=== PATIENT | female | born 1975 ===

== ENCOUNTER 2018-02-20 15:53 | Emergency (ER) | payer OTHER ==
[~2018-02-20] VITALS: Ht 157.5 cm; Wt 68.0 kg
[~2018-02-20 15:53] MED LIST: CATAFLAM50 MG PO; COZAAR100 MG PO; DOLOGEN CAPLET1 EACH PO; FIORICET 50-321 EACH PO; FLEXERIL10 MG PO; LOTRISONE CREAM45 GM TP; MEDROL4 MG PO; VOLTAREM 50 MG PO
== END 2018-02-20 18:22 | disposition home or self-care (01) ==
LOC: ER 15:53
DX: J06.9 Acute upper respiratory infection, unspecified (principal)

== ENCOUNTER 2020-06-22 09:36 | Outpatient (CLI) | payer OTHER ==
[~2020-06-22 09:36] MED LIST changes: +NABUMETONE750 MG PO; +SKELAXIN800 MG PO
== END 2020-06-22 10:03 | disposition home or self-care (01) ==
LOC: RAD 09:36
PROVIDERS: ATTEND Physical Medicine & Rehabilitation
DX: M54.12 Radiculopathy, cervical region (principal); M54.2 Cervicalgia; M62.830 Muscle spasm of back

== ENCOUNTER 2020-07-09 10:42 | Outpatient (CLI) | payer OTHER | END 2020-07-09 11:00 | disposition home or self-care (01) | LOC: RAD 10:42 | PROVIDERS: ATTEND Physical Medicine & Rehabilitation | DX: Q76.49 Other congenital malformations of spine, not associated with scoliosis (principal); N20.0 Calculus of kidney; M54.5 Low back pain ==